=== PATIENT | female | born 1945 | race Hispanic/Latino ===

== ENCOUNTER 2021-03-21 16:07 | Inpatient (IN) | payer OTHER ==
[~2021-03-21] VITALS: Ht 157.5 cm; Wt 64.5 kg
[2021-03-21] MEDS ORDERED: ONDANSETRON 4MG INJ IVP ONE (16:30)
[2021-03-21] MEDS ORDERED: 0.9% NACL 500ML IV.SOLN 500 ML IV ONE (16:30)
[2021-03-21] MEDS ORDERED: MORPHINE 2 MG SYG IVP ONE (16:30)
[2021-03-21] MEDS ORDERED: MORPHINE 2 MG SYG ONE (16:59)
[2021-03-21] MEDS ORDERED: ONDANSETRON 4MG INJ ONE (16:59)
[2021-03-21] MEDS: FENTANYL CITRATE PF 50 MCG/1 ML 2ML VIAL ONE ×2 (17:47→19:42)
[2021-03-21] MEDS ORDERED: FENTANYL CITRATE PF 50 MCG/1 ML 2ML VIAL IVP ONE (18:00)
[2021-03-21] MEDS ORDERED: MORPHINE 2 MG SYG IV PRN (18:30)
[2021-03-21] MEDS ORDERED: ACETAMINOPHEN 325 MG TAB PO PRN ×2 (18:30)
[2021-03-21] MEDS ORDERED: ONDANSETRON 4MG INJ IV PRN (18:30)
[2021-03-21 18:54] LABS: APPEARANCE,URINE Clear (CLEAR); BILIRUBIN,URINE Negative (NEGATIVE); COLOR,URINE Yellow (YELLOW); GLUCOSE, URINE (UA) Negative (NEGATIVE); KETONES,URINE Negative (NEGATIVE); LEUKOCYTE ESTERASE ,URINE Small (NEGATIVE); NITRATE,URINE Negative (NEGATIVE); OCCULT BLOOD,URINE Negative (NEGATIVE); PROTEIN,URINE Negative (NEGATIVE); UROBILINOGEN,URINE 0.2 mg/dL (0.2-1.0)
[2021-03-21 19:21] LABS: BASOPHILS % (AUTO) 0.5 % (0.0-5.0); LYMPHOCYTES % (AUTO) 10.4 % (21.0-51.0); MEAN CORPUSCULAR HEMOGLOBIN 30.7 pg (27.0-33.0); MEAN CORPUSCULAR HGB CONC 32.3 g/dL (32.0-36.0); MEAN CORPUSCULAR VOLUME 94.9 fL (79-99); MONOCYTES % (AUTO) 7.4 % (3.0-13.0); PLATELET COUNT (AUTO) 291 K/uL (130-400); RED BLOOD CELL COUNT(AUTO) 4.11 MIL/uL (4.00-5.50); RED CELL DISTRIBUTION WIDTH 14.5 % (11.0-15.5); WHITE BLOOD COUNT (AUTO) 10.7 K/uL (4.8-10.8)
[2021-03-21 19:24] LABS: BACTERIA,URINE Moderate /HPF (None Seen); RBC,URINE 0-1 /HPF (0-1); SQUAMOUS EPITHELIAL CELL,UR Few /HPF (0-2)
[2021-03-21 19:35] LABS: CREATININE 1.4 mg/dL (0.5-1.5); POTASSIUM 3.1 mmol/L (3.5-5.1)
[2021-03-21 19:40] LABS: ALBUMIN 2.8 g/dL (3.5-5.0); BILIRUBIN,TOTAL 0.2 mg/dL (0.2-1.0); INR 0.92 (0.85-1.15); PROTHROMBIN TIME 10.1 SEC (9.6-11.6); TOTAL PROTEIN, SERUM 7.6 g/dL (6.0-8.3)
[2021-03-21 19:41] LABS: PARTIAL THROMBOPLASTIN TIME 25.7 SEC (26.3-35.5)
[2021-03-21] MEDS: 0.9%NACL 1000ML 1,000 ML IV SCH (20:10)
[2021-03-21] MEDS ORDERED: HYDROMORPHONE 1 MG INJ ONE (21:50)
[2021-03-21] MEDS ORDERED: HYDROMORPHONE 1 MG INJ IVP PRN (22:00)
[2021-03-21] MEDS ORDERED: MORPHINE 4 MG SYG IV PRN (23:30)
[2021-03-22] VITALS (25 sets, daily range): BP systolic 111–196; BP diastolic 52–99
[2021-03-22] MEDS ORDERED: MAGNESIUM 2GM PREMIX 50ML 50 ML IV PRN
[2021-03-22] MEDS ORDERED: POTASSIUM CHLORIDE 10% ELIXIR 20 MEQ/15 ML UDCUP PO PRN
[2021-03-22] MEDS ORDERED: LIDOCAINE HCL-MPF 1% 2ML VIAL IV PRN
[2021-03-22] MEDS ORDERED: POTASSIUM CHLORIDE 20MEQ/100ML 100 ML IV PRN
[2021-03-22] MEDS ORDERED: KCL 20 MEQ ERTAB PO ONE
[2021-03-22] MEDS: KCL 20 MEQ ERTAB PO PRN ×2 (00:04→00:34)
[2021-03-22 05:55] LABS: BASOPHILS % (AUTO) 0.4 % (0.0-5.0); EOSINOPHILS % (AUTO) 0.1 % (0.0-8.0); HEMATOCRIT 38.9 % (36-48); LYMPHOCYTES % (AUTO) 11.6 % (21.0-51.0); MEAN CORPUSCULAR HEMOGLOBIN 30.4 pg (27.0-33.0); MEAN CORPUSCULAR HGB CONC 31.4 g/dL (32.0-36.0); MONOCYTES % (AUTO) 8.8 % (3.0-13.0); NEUTROPHILS % (AUTO) 78.6 % (40.0-77.0); PLATELET COUNT (AUTO) 250 K/uL (130-400); RED BLOOD CELL COUNT(AUTO) 4.01 MIL/uL (4.00-5.50); RED CELL DISTRIBUTION WIDTH 14.8 % (11.0-15.5); WHITE BLOOD COUNT (AUTO) 9.4 K/uL (4.8-10.8)
[2021-03-22 06:24] LABS: CREATININE 1.3 mg/dL (0.5-1.5); MAGNESIUM 1.8 mg/dL (1.80-2.40); POTASSIUM 3.8 mmol/L (3.5-5.1)
[2021-03-22] MEDS: 0.9%NACL 1000ML 1,000 ML IV SCH ×2 (06:36→17:14)
[2021-03-22] MEDS: FAMOTIDINE 20MG VIAL IV SCH (08:18)
[2021-03-22] MEDS ORDERED: TRANEXAMIC ACID 1000MG/10ML ONE (08:57)
[2021-03-22] MEDS ORDERED: VANCOMYCIN 1G VIAL ONE (08:57)
[2021-03-22] MEDS: CEFAZOLIN SODIUM 1 GM VIAL ONE ×2 (09:26→10:00)
[2021-03-22] MEDS ORDERED: HYDROCODONE/ACETAMINOPHEN 5/325 MG TAB PO PRN (09:30)
[2021-03-22] MEDS ORDERED: PROPOFOL 10 MG/ML 20ML VIAL IV ONE (09:31)
[2021-03-22] MEDS ORDERED: SUCCINYLCHOLINE CHLORIDE 20 MG/ML 10 ML VIAL ONE (09:31)
[2021-03-22] MEDS ORDERED: ROCURONIUM 10MG/1ML SYR 10 MG/ML ML ONE (09:31)
[2021-03-22] MEDS ORDERED: LIDOCAINE PF 100MG/5ML (2%) SYRINGE 5ML ONE (09:31)
[2021-03-22] MEDS ORDERED: MIDAZOLAM HCL 1 MG/ML 2ML VIAL ONE (09:31)
[2021-03-22] MEDS ORDERED: KETAMINE 50MG/ML SYRINGE 50 MG/ML DISP.SYRIN IV ONE (09:35)
[2021-03-22] MEDS: CEFTRIAXONE 1G VIAL ONE ×2 (09:36→09:40)
[2021-03-22] MEDS ORDERED: GLYCOPYRROLATE 1 MG/5 ML SYRINGE ONE (09:47)
[2021-03-22] MEDS ORDERED: DiphenhydrAMINE HCL 50 MG/ML VIAL IVP PRN (10:00)
[2021-03-22] MEDS ORDERED: FERROUS FUMARATE 324 MG TABLET PO PRN (10:00)
[2021-03-22] MEDS ORDERED: ONDANSETRON 4MG INJ IVP PRN (10:00)
[2021-03-22] MEDS ORDERED: PHENYLEPHRINE HCL 10 MG/ML 1ML VIAL IV ONE (10:52)
[2021-03-22] MEDS ORDERED: ROPIVACAINE 0.5% 5MG/ML 30ML IJ ONE ×2 (11:08→11:10)
[2021-03-22] MEDS ORDERED: ONDANSETRON 4MG INJ ONE (11:08)
[2021-03-22] MEDS ORDERED: NEOSTIGMINE 5MG/5ML SYR IV ONE (11:08)
[2021-03-22] MEDS ORDERED: TRANEXAMIC ACID 1000MG/10ML IV ONE (12:05)
[2021-03-22] MEDS ORDERED: MEPERIDINE-PF 25 MG/ML SYG ONE ×2 (12:15→12:38)
[2021-03-22] MEDS: CEFAZOLIN SODIUM 1 GM VIAL IVP SCH (17:15)
[2021-03-22] MEDS ORDERED: PRAV10TA39 PO (18:03)
[2021-03-22] MEDS ORDERED: LEFL20TA18 PO (18:06)
[2021-03-22] MEDS ORDERED: SULF500T8 PO (18:06)
[2021-03-22] MEDS ORDERED: PRED5TAB PO (18:06)
[2021-03-22] MEDS ORDERED: LINA5TAB PO (18:06)
[2021-03-22] MEDS: LEFLUNOMIDE 20 MG PO SCH (18:30)
[2021-03-22] MEDS: SIMVASTATIN 10 MG TABLET PO SCH (20:11)
[2021-03-22] MEDS: PREDNISONE 5 MG TABLET PO SCH (20:11)
[2021-03-22] MEDS: SULFASALAZINE 500 MG TAB.DR PO SCH (20:11)
[2021-03-23] MEDS: 0.9%NACL 1000ML 1,000 ML IV SCH ×2 (00:30→10:30)
[2021-03-23] MEDS ORDERED: CEFAZOLIN SODIUM 1 GM VIAL ONE (01:04)
[2021-03-23] MEDS: CEFAZOLIN SODIUM 1 GM VIAL IVP SCH (01:07)
[2021-03-23 03:20] VITALS: BP 138/67
[2021-03-23 04:05] LABS: HEMATOCRIT 34.9 % (36-48); MEAN CORPUSCULAR HEMOGLOBIN 31.2 pg (27.0-33.0); MEAN CORPUSCULAR HGB CONC 31.8 g/dL (32.0-36.0); RED BLOOD CELL COUNT(AUTO) 3.56 MIL/uL (4.00-5.50); RED CELL DISTRIBUTION WIDTH 14.9 % (11.0-15.5); WHITE BLOOD COUNT (AUTO) 9.4 K/uL (4.8-10.8)
[2021-03-23 04:24] LABS: CREATININE 1.2 mg/dL (0.5-1.5); MAGNESIUM 2.2 mg/dL (1.80-2.40); POTASSIUM 4.6 mmol/L (3.5-5.1)
[2021-03-23] MEDS: KETOROLAC 15MG/ML VIAL (15MG/ML) IV PRN ×3 (07:13→20:59)
[2021-03-23 07:30] VITALS: BP 135/70
[2021-03-23] MEDS: SULFASALAZINE 500 MG TAB.DR PO SCH ×2 (09:00→20:53)
[2021-03-23] MEDS: LEFLUNOMIDE 20 MG PO SCH (09:00)
[2021-03-23] MEDS: CEFTRIAXONE 1G VIAL IVP SCH (10:00)
[2021-03-23] MEDS: FAMOTIDINE 20MG VIAL IV SCH (10:00)
[2021-03-23] MEDS: LINAGLIPTIN 5 MG TABLET PO SCH (10:00)
[2021-03-23] MEDS: PREDNISONE 5 MG TABLET PO SCH ×2 (10:00→20:53)
[2021-03-23] MEDS ORDERED: BIMA12.5OS OD (10:15)
[2021-03-23 11:00] VITALS: BP 106/59
[2021-03-23 16:00] VITALS: BP 142/57
[2021-03-23] MEDS ORDERED: PHARMACY COMMUNICATION MISC SCH (17:00)
[2021-03-23 20:37] VITALS: BP 141/78
[2021-03-23] MEDS: APIXABAN 2.5 MG TABLET PO SCH (20:53)
[2021-03-23] MEDS: SIMVASTATIN 10 MG TABLET PO SCH (20:53)
[2021-03-23 23:33] VITALS: BP 136/70
[2021-03-24 04:12] VITALS: BP 144/76
[2021-03-24] MEDS: 0.9%NACL 1000ML 1,000 ML IV SCH ×2 (06:30→16:30)
[2021-03-24 07:30] VITALS: BP 142/83
[2021-03-24] MEDS: KETOROLAC 15MG/ML VIAL (15MG/ML) IV PRN (07:59)
[2021-03-24] MEDS: LINAGLIPTIN 5 MG TABLET PO SCH (08:00)
[2021-03-24] MEDS: PREDNISONE 5 MG TABLET PO SCH ×2 (08:00→21:27)
[2021-03-24] MEDS: APIXABAN 2.5 MG TABLET PO SCH ×2 (08:01→21:27)
[2021-03-24] MEDS: LEFLUNOMIDE 20 MG PO SCH (09:00)
[2021-03-24] MEDS: SULFASALAZINE 500 MG TAB.DR PO SCH ×2 (09:00→21:26)
[2021-03-24] MEDS: CEFTRIAXONE 1G VIAL IVP SCH (09:12)
[2021-03-24] MEDS: FAMOTIDINE 20MG TAB PO SCH (10:12)
[2021-03-24 11:00] VITALS: BP 140/85
[2021-03-24 16:00] VITALS: BP 138/68
[2021-03-24 20:41] VITALS: BP 128/65
[2021-03-24] MEDS: SIMVASTATIN 10 MG TABLET PO SCH (21:27)
[2021-03-24 23:56] VITALS: BP 143/69
[2021-03-25] MEDS: 0.9%NACL 1000ML 1,000 ML IV SCH ×2 (02:30→19:32)
[2021-03-25 04:00] VITALS: BP 151/76
[2021-03-25 04:27] LABS: HEMATOCRIT 30.6 % (36-48); MEAN CORPUSCULAR HEMOGLOBIN 30.6 pg (27.0-33.0); MEAN CORPUSCULAR HGB CONC 32.7 g/dL (32.0-36.0); MEAN CORPUSCULAR VOLUME 93.6 fL (79-99); RED BLOOD CELL COUNT(AUTO) 3.27 MIL/uL (4.00-5.50); RED CELL DISTRIBUTION WIDTH 14.7 % (11.0-15.5)
[2021-03-25 04:32] LABS: CREATININE 1.2 mg/dL (0.5-1.5)
[2021-03-25 07:30] VITALS: BP 125/61
[2021-03-25] MEDS: APIXABAN 2.5 MG TABLET PO SCH ×2 (08:33→20:37)
[2021-03-25] MEDS: PREDNISONE 5 MG TABLET PO SCH ×2 (08:33→20:37)
[2021-03-25] MEDS: LINAGLIPTIN 5 MG TABLET PO SCH (08:33)
[2021-03-25] MEDS: FAMOTIDINE 20MG TAB PO SCH (08:33)
[2021-03-25] MEDS: SULFASALAZINE 500 MG TAB.DR PO SCH ×2 (08:36→20:38)
[2021-03-25] MEDS: LEFLUNOMIDE 20 MG PO SCH (08:36)
[2021-03-25] MEDS: KETOROLAC 15MG/ML VIAL (15MG/ML) IV PRN (08:41)
[2021-03-25] MEDS: CEFTRIAXONE 1G VIAL IVP SCH (10:56)
[2021-03-25 11:00] VITALS: BP 105/55
[2021-03-25 16:00] VITALS: BP 144/75
[2021-03-25] MEDS: SIMVASTATIN 10 MG TABLET PO SCH (20:37)
[2021-03-25] MEDS: TRAMADOL HCL 50 MG TABLET PO SCH (20:38)
[2021-03-25 23:14] VITALS: BP 123/61
[2021-03-26] MEDS: TRAMADOL HCL 50 MG TABLET PO SCH ×4 (03:18→19:57)
[2021-03-26 03:32] VITALS: BP 144/73
[2021-03-26 03:54] LABS: HEMATOCRIT 32.4 % (36-48); MEAN CORPUSCULAR HEMOGLOBIN 30.6 pg (27.0-33.0); MEAN CORPUSCULAR HGB CONC 31.5 g/dL (32.0-36.0); MEAN CORPUSCULAR VOLUME 97.3 fL (79-99); RED BLOOD CELL COUNT(AUTO) 3.33 MIL/uL (4.00-5.50); RED CELL DISTRIBUTION WIDTH 14.7 % (11.0-15.5); WHITE BLOOD COUNT (AUTO) 7.3 K/uL (4.8-10.8)
[2021-03-26 04:08] LABS: CREATININE 1.5 mg/dL (0.5-1.5); POTASSIUM 4.4 mmol/L (3.5-5.1)
[2021-03-26 07:30] VITALS: BP 128/68
[2021-03-26] MEDS: 0.9%NACL 1000ML 1,000 ML IV SCH ×2 (08:30→19:39)
[2021-03-26] MEDS: FAMOTIDINE 20MG TAB PO SCH (08:53)
[2021-03-26] MEDS: CEFTRIAXONE 1G VIAL IVP SCH (08:54)
[2021-03-26] MEDS: APIXABAN 2.5 MG TABLET PO SCH ×2 (08:54→19:56)
[2021-03-26] MEDS: PREDNISONE 5 MG TABLET PO SCH ×2 (08:54→19:56)
[2021-03-26] MEDS: LINAGLIPTIN 5 MG TABLET PO SCH (08:57)
[2021-03-26] MEDS: LEFLUNOMIDE 20 MG PO SCH (09:00)
[2021-03-26] MEDS: SULFASALAZINE 500 MG TAB.DR PO SCH ×2 (09:00→19:56)
[2021-03-26 11:00] VITALS: BP 137/68
[2021-03-26 16:00] VITALS: BP 137/71
[2021-03-26] MEDS: SIMVASTATIN 10 MG TABLET PO SCH (19:56)
[2021-03-26 20:28] VITALS: BP 146/80
[2021-03-26 23:23] VITALS: BP 151/77
[2021-03-27] MEDS: TRAMADOL HCL 50 MG TABLET PO SCH ×3 (03:42→11:50)
[2021-03-27 03:43] VITALS: BP 149/85
[2021-03-27 03:49] LABS: HEMATOCRIT 31.5 % (36-48); MEAN CORPUSCULAR HEMOGLOBIN 30.9 pg (27.0-33.0); MEAN CORPUSCULAR HGB CONC 32.4 g/dL (32.0-36.0); MEAN CORPUSCULAR VOLUME 95.5 fL (79-99); RED BLOOD CELL COUNT(AUTO) 3.3 MIL/uL (4.00-5.50); RED CELL DISTRIBUTION WIDTH 14.7 % (11.0-15.5); WHITE BLOOD COUNT (AUTO) 7.1 K/uL (4.8-10.8)
[2021-03-27 03:57] LABS: CREATININE 1.3 mg/dL (0.5-1.5); POTASSIUM 4.1 mmol/L (3.5-5.1)
[2021-03-27 07:42] VITALS: BP 132/48
[2021-03-27] MEDS: LEFLUNOMIDE 20 MG PO SCH (09:00)
[2021-03-27] MEDS: APIXABAN 2.5 MG TABLET PO SCH (09:46)
[2021-03-27] MEDS: FAMOTIDINE 20MG TAB PO SCH (09:46)
[2021-03-27] MEDS: CEFTRIAXONE 1G VIAL IVP SCH (09:46)
[2021-03-27] MEDS: LINAGLIPTIN 5 MG TABLET PO SCH (09:47)
[2021-03-27] MEDS: PREDNISONE 5 MG TABLET PO SCH (09:47)
[2021-03-27] MEDS: SULFASALAZINE 500 MG TAB.DR PO SCH (09:47)
[2021-03-27] MEDS: 0.9%NACL 1000ML 1,000 ML IV SCH (14:30)
== END 2021-03-27 18:44 | DRG 522 ==
LOC: EDH 16:07 → OBSVTOIN 16:08 → EDHIP 16:08 → 4AH 23:06
PROVIDERS: ADMIT Internal Medicine Critical Care Medicine; ATTEND Internal Medicine Critical Care Medicine
PROC: 0SRR0JZ Replacement of Right Hip Joint, Femoral Surface with Synthetic Substitute, Open Approach (ICD-10-PCS; principal; 2021-03-22 10:19)
PROC: 3E0T3BZ Introduction of Anesthetic Agent into Peripheral Nerves and Plexi, Percutaneous Approach (ICD-10-PCS; 2021-03-22 10:19)
PROC: 3E0T33Z Introduction of Anti-inflammatory into Peripheral Nerves and Plexi, Percutaneous Approach (ICD-10-PCS; 2021-03-22 10:19)
DX: S72.001A Fracture of unspecified part of neck of right femur, initial encounter for closed fracture (principal); N39.0 Urinary tract infection, site not specified; E87.6 Hypokalemia; Z20.822 Contact with and (suspected) exposure to COVID-19; M19.90 Unspecified osteoarthritis, unspecified site; H40.9 Unspecified glaucoma; N20.0 Calculus of kidney; E11.9 Type 2 diabetes mellitus without complications; E78.5 Hyperlipidemia, unspecified; W01.0XXA Fall on same level from slipping, tripping and stumbling without subsequent striking against object, initial encounter; Y93.89 Activity, other specified; Y92.89 Other specified places as the place of occurrence of the external cause; Y99.8 Other external cause status; Z88.5 Allergy status to narcotic agent; Z87.442 Personal history of urinary calculi; Z98.42 Cataract extraction status, left eye; Z98.41 Cataract extraction status, right eye; Z90.49 Acquired absence of other specified parts of digestive tract; Z88.8 Allergy status to other drugs, medicaments and biological substances; Z83.3 Family history of diabetes mellitus; Z82.49 Family history of ischemic heart disease and other diseases of the circulatory system
CPT/HCPCS: 36415; 71045; 73502; 73503; 80048; 80053; 81001; 82948; 83735; 84484; 85025; 85027; 85610; 85730; 86850; 86900; 86901; 87077; 87088; 87186; 87635; 93005; 97039; C1776; G0378; J0330; J0690; J0696; J1170; J1885; J2001; J2175; J2250; J2270; J2370; J2405; J2704; J2710; J2795; J3010; J3370; J3475; J3490; J7030; J7512

== ENCOUNTER 2022-05-31 13:40 | Inpatient (IN) | payer OTHER ==
[~2022-05-31] VITALS: Ht 157.5 cm; Wt 58.0 kg
[~2022-05-31 13:40] MED LIST: BIMA12.5OS OD; LEFL20TA18 PO; LINA5TAB PO; PRAV10TA39 PO; PRED5TAB PO; SULF500T8 PO
[2022-05-31 14:35] LABS: BASOPHILS % (AUTO) 0.3 % (0.0-5.0); EOSINOPHILS % (AUTO) 0.1 % (0.0-8.0); HEMATOCRIT 38.4 % (36-48); MEAN CORPUSCULAR HEMOGLOBIN 29.5 pg (27.0-33.0); MEAN CORPUSCULAR HGB CONC 33.1 g/dL (32.0-36.0); MEAN CORPUSCULAR VOLUME 89.1 fL (79-99); NEUTROPHILS % (AUTO) 83.7 % (40.0-77.0); PLATELET COUNT (AUTO) 313 K/uL (130-400); RED BLOOD CELL COUNT(AUTO) 4.31 MIL/uL (4.00-5.50); RED CELL DISTRIBUTION WIDTH 14.8 % (11.0-15.5); WHITE BLOOD COUNT (AUTO) 19.8 K/uL (4.8-10.8)
[2022-05-31] MEDS ORDERED: ZOSYN 3.375GM +NS 50ML IV STA (14:43)
[2022-05-31 14:45] LABS: CREATININE 1.5 mg/dL (0.5-1.5); POTASSIUM 3.9 mmol/L (3.5-5.1)
[2022-05-31 14:47] LABS: ALBUMIN 2.1 g/dL (3.5-5.0); TOTAL PROTEIN, SERUM 8.8 g/dL (6.0-8.3)
[2022-05-31 15:03] LABS: APPEARANCE,URINE TURBID (CLEAR); BILIRUBIN,URINE NEGATIVE (NEGATIVE); COLOR,URINE LIGHT-ORANGE (YELLOW); GLUCOSE, URINE (UA) NEGATIVE (NEGATIVE); KETONES,URINE NEGATIVE (NEGATIVE); LEUKOCYTE ESTERASE ,URINE 500 Leu/uL (NEGATIVE); NITRATE,URINE NEGATIVE (NEGATIVE); OCCULT BLOOD,URINE MODERATE (NEGATIVE); PH,URINE 5.5 (5.0-8.0); PROTEIN,URINE 100 mg/dL (NEGATIVE)
[2022-05-31 15:15] LABS: BACTERIA,URINE MOD /HPF (None Seen); MUCUS,URINE RARE LPF (None Seen); SQUAMOUS EPITHELIAL CELL,UR FEW /HPF (0-2); WBC,URINE >100 /HPF (0-1); YEAST,URINE BUDDING RARE /HPF (None Seen)
[2022-05-31 15:20] LABS: APPEARANCE,URINE TURBID (CLEAR)
[2022-05-31 15:21] LABS: COLOR,URINE BROWN (YELLOW)
[2022-05-31 15:22] LABS: LEUKOCYTE ESTERASE ,URINE MODERATE Leu/uL (NEGATIVE); NITRATE,URINE NEGATIVE (NEGATIVE); UROBILINOGEN,URINE 0.2 mg/dL (0.2-1.0)
[2022-05-31 15:24] LABS: PROTEIN,URINE >=1000 mg/dL (NEGATIVE)
[2022-05-31 15:25] LABS: OCCULT BLOOD,URINE LARGE (NEGATIVE)
[2022-05-31 15:26] LABS: BILIRUBIN,URINE NEGATIVE (NEGATIVE); GLUCOSE, URINE (UA) 100 mg/dL (NEGATIVE); KETONES,URINE >=80 mg/dL (NEGATIVE)
[2022-05-31 15:46] LABS: WBC,URINE TNTC /HPF (0-1)
[2022-05-31 15:47] LABS: BACTERIA,URINE Moderate /HPF (None Seen); SQUAMOUS EPITHELIAL CELL,UR None Seen /HPF (0-2)
[2022-05-31] MEDS ORDERED: IOHEXOL 350 MG/ML 100ML INFUS..BTL IV ONE (16:23)
[2022-05-31] MEDS ORDERED: ACETAMINOPHEN 325 MG TAB PO PRN (19:00)
[2022-05-31] MEDS ORDERED: VANCOMYCIN PROTOCOL PER PHARMACY IV PRN (19:00)
[2022-05-31] MEDS ORDERED: VANCOMYCIN 1G/250ML KIT 250 ML IV SCH (19:30)
[2022-05-31 19:39] LABS: CREATININE,URINE RANDOM 196 mg/dL (30-135); SODIUM,URINE RANDOM 16 mmol/l (40-220)
[2022-05-31 19:56] LABS: INR 1.07 (0.85-1.15); PROTHROMBIN TIME 11.6 SEC (9.6-11.6)
[2022-05-31 19:58] LABS: PARTIAL THROMBOPLASTIN TIME 26.5 SEC (26.3-35.5)
[2022-05-31 20:12] LABS: CRP QUANTITATIVE 319.9 mg/L (0.00-9.0)
[2022-05-31 20:20] LABS: HEMOGLOBIN A1C 7.9 % (4.0-6.0)
[2022-05-31] MEDS ORDERED: DEXTROSE 5%-WATER 250 ML IV ONE (20:35)
[2022-05-31] MEDS ORDERED: ONDA4TAB10 PO (21:12)
[2022-05-31] MEDS ORDERED: ROSU5TAB12 PO (21:17)
[2022-05-31] MEDS: 0.9%NACL 1000ML 1,000 ML IV SCH (22:30)
[2022-05-31] MEDS: FAMOTIDINE 20MG VIAL IV SCH (22:30)
[2022-05-31] MEDS: MEROPENEM 500 MG VIAL IV SCH (22:34)
[2022-06-01] VITALS (13 sets, daily range): BP systolic 90–121; BP diastolic 48–64
[2022-06-01] MEDS: HYDROMORPHONE 0.5 MG SYG (0.5MG/0.5ML) IVP PRN ×2 (01:07→13:23)
[2022-06-01 06:59] LABS: BASOPHILS % (AUTO) 0.3 % (0.0-5.0); EOSINOPHILS % (AUTO) 0.7 % (0.0-8.0); HEMATOCRIT 32.4 % (36-48); LYMPHOCYTES % (AUTO) 9.4 % (21.0-51.0); MEAN CORPUSCULAR HEMOGLOBIN 28.5 pg (27.0-33.0); MEAN CORPUSCULAR HGB CONC 32.7 g/dL (32.0-36.0); MEAN CORPUSCULAR VOLUME 87.1 fL (79-99); MONOCYTES % (AUTO) 7.4 % (3.0-13.0); NEUTROPHILS % (AUTO) 81.4 % (40.0-77.0); PLATELET COUNT (AUTO) 264 K/uL (130-400); RED BLOOD CELL COUNT(AUTO) 3.72 MIL/uL (4.00-5.50); RED CELL DISTRIBUTION WIDTH 14.9 % (11.0-15.5); WHITE BLOOD COUNT (AUTO) 17.3 K/uL (4.8-10.8)
[2022-06-01 07:17] LABS: ALBUMIN 1.6 g/dL (3.5-5.0); CREATININE 1.3 mg/dL (0.5-1.5); MAGNESIUM 1.7 mg/dL (1.80-2.40); POTASSIUM 3.2 mmol/L (3.5-5.1); TOTAL PROTEIN, SERUM 7.2 g/dL (6.0-8.3)
[2022-06-01] MEDS: 0.9%NACL 1000ML 1,000 ML IV SCH ×2 (07:38→13:12)
[2022-06-01 08:18] LABS: CRP QUANTITATIVE 238.2 mg/L (0.00-9.0)
[2022-06-01 08:24] LABS: ERYTHROCYTE SEDIMENTATION RATE 150 MM/HR (0-30)
[2022-06-01] MEDS: MEROPENEM 500 MG VIAL IV SCH ×2 (08:39→21:07)
[2022-06-01] MEDS ORDERED: FENTANYL CITRATE PF 50 MCG/1 ML 2ML VIAL ONE (14:04)
[2022-06-01] MEDS ORDERED: 0.9%NACL 100ML 100 ML ONE (17:54)
[2022-06-01] MEDS ORDERED: VANCOMYCIN 500MG+NS 100ML 100 ML IV SCH (18:00)
[2022-06-01] MEDS: FAMOTIDINE 20MG VIAL IV SCH (21:07)
[2022-06-02] VITALS (7 sets, daily range): BP systolic 105–131; BP diastolic 44–83
[2022-06-02] MEDS: HYDROMORPHONE 0.5 MG SYG (0.5MG/0.5ML) IM PRN ×4 (00:05→20:20)
[2022-06-02 07:53] LABS: BASOPHILS % (AUTO) 0.3 % (0.0-5.0); EOSINOPHILS % (AUTO) 0.1 % (0.0-8.0); HEMATOCRIT 31.6 % (36-48); LYMPHOCYTES % (AUTO) 7.9 % (21.0-51.0); MEAN CORPUSCULAR HEMOGLOBIN 29.4 pg (27.0-33.0); MEAN CORPUSCULAR HGB CONC 33.5 g/dL (32.0-36.0); MEAN CORPUSCULAR VOLUME 87.5 fL (79-99); MONOCYTES % (AUTO) 6.4 % (3.0-13.0); NEUTROPHILS % (AUTO) 84.7 % (40.0-77.0); PLATELET COUNT (AUTO) 226 K/uL (130-400); RED BLOOD CELL COUNT(AUTO) 3.61 MIL/uL (4.00-5.50); RED CELL DISTRIBUTION WIDTH 14.9 % (11.0-15.5); WHITE BLOOD COUNT (AUTO) 14.2 K/uL (4.8-10.8)
[2022-06-02] MEDS: MEROPENEM 500 MG VIAL IV SCH (08:15)
[2022-06-02 08:27] LABS: CREATININE 1.1 mg/dL (0.5-1.5); MAGNESIUM 1.8 mg/dL (1.80-2.40); POTASSIUM 3.3 mmol/L (3.5-5.1)
[2022-06-02] MEDS: 0.9%NACL 1000ML 1,000 ML IV SCH ×3 (11:51→20:36)
[2022-06-02] MEDS: MEROPENEM 1 GM VIAL IVP SCH ×2 (13:39→20:36)
[2022-06-02] MEDS ORDERED: POTASSIUM CHLORIDE 10% ELIXIR 20 MEQ/15 ML UDCUP PO PRN (16:00)
[2022-06-02] MEDS ORDERED: LIDOCAINE HCL-MPF 1% 2ML VIAL IV PRN (16:00)
[2022-06-02] MEDS ORDERED: POTASSIUM CHLORIDE 20MEQ/100ML 100 ML IV PRN (16:00)
[2022-06-02] MEDS: KCL 20 MEQ ERTAB PO PRN ×3 (16:02→20:20)
[2022-06-02] MEDS: MAGNESIUM 2GM PREMIX 50ML 50 ML IV PRN (16:03)
[2022-06-02] MEDS ORDERED: 0.9%NACL 100ML 100 ML ONE (19:41)
[2022-06-02] MEDS: FAMOTIDINE 20MG VIAL IV SCH (20:20)
[2022-06-03] VITALS (14 sets, daily range): BP systolic 95–131; BP diastolic 42–62
[2022-06-03 03:38] LABS: RETICULOCYTE % (AUTO) 1.66 % (0.42-2.23)
[2022-06-03 03:49] LABS: % IRON SATURATION 18.9 % (22-44)
[2022-06-03 04:15] LABS: CREATININE 1.2 mg/dL (0.5-1.5); MAGNESIUM 1.6 mg/dL (1.80-2.40); PHOSPHORUS 2.5 mg/dL (2.5-4.9)
[2022-06-03] MEDS ORDERED: 0.9%NACL 100ML 100 ML ONE (04:59)
[2022-06-03] MEDS: MEROPENEM 1 GM VIAL IVP SCH ×3 (05:03→20:05)
[2022-06-03] MEDS: HYDROMORPHONE 0.5 MG SYG (0.5MG/0.5ML) IM PRN ×2 (05:40→20:05)
[2022-06-03] MEDS: MAGNESIUM 2GM PREMIX 50ML 50 ML IV PRN (06:12)
[2022-06-03] MEDS: 0.9%NACL 1000ML 1,000 ML IV SCH (06:13)
[2022-06-03] MEDS ORDERED: IOHEXOL-350 50ML VIAL IV ONE (08:23)
[2022-06-03] MEDS ORDERED: FENTANYL CITRATE PF 50 MCG/1 ML 2ML VIAL ONE (08:24)
[2022-06-03] MEDS ORDERED: LIDOCAINE HCL 400MG/20ML VIAL ONE (08:24)
[2022-06-03] MEDS ORDERED: MIDAZOLAM HCL 1 MG/ML 2ML VIAL ONE (08:24)
[2022-06-03] MEDS ORDERED: IOHEXOL 350 MG/ML 100ML INFUS..BTL IV ONE (08:45)
[2022-06-03 14:43] LABS: INR 1.06 (0.85-1.15); PROTHROMBIN TIME 11.5 SEC (9.6-11.6)
[2022-06-03 14:44] LABS: PARTIAL THROMBOPLASTIN TIME 30.2 SEC (26.3-35.5)
[2022-06-03] MEDS: FAMOTIDINE 20MG VIAL IV SCH (20:05)
[2022-06-04] VITALS (10 sets, daily range): BP systolic 82–111; BP diastolic 49–63
[2022-06-04] MEDS: 0.9%NACL 1000ML 1,000 ML IV SCH ×3 (03:00→23:00)
[2022-06-04 03:46] LABS: BASOPHILS % (AUTO) 0.6 % (0.0-5.0); EOSINOPHILS % (AUTO) 1.5 % (0.0-8.0); HEMATOCRIT 31.7 % (36-48); MEAN CORPUSCULAR HEMOGLOBIN 28.8 pg (27.0-33.0); MEAN CORPUSCULAR HGB CONC 33.1 g/dL (32.0-36.0); MEAN CORPUSCULAR VOLUME 87.1 fL (79-99); MONOCYTES % (AUTO) 6.4 % (3.0-13.0); NEUTROPHILS % (AUTO) 81.8 % (40.0-77.0); PLATELET COUNT (AUTO) 248 K/uL (130-400); RED BLOOD CELL COUNT(AUTO) 3.64 MIL/uL (4.00-5.50); RED CELL DISTRIBUTION WIDTH 14.6 % (11.0-15.5)
[2022-06-04 03:54] LABS: CREATININE 1.1 mg/dL (0.5-1.5); POTASSIUM 3.8 mmol/L (3.5-5.1)
[2022-06-04] MEDS: MEROPENEM 1 GM VIAL IVP SCH ×3 (05:07→20:43)
[2022-06-04] MEDS: HYDROMORPHONE 0.5 MG SYG (0.5MG/0.5ML) IM PRN ×3 (05:22→23:20)
[2022-06-04] MEDS ORDERED: 0.9%NACL 100ML 100 ML ONE (12:48)
[2022-06-04] MEDS ORDERED: IODIXANOL 320 MG/ML 100 ML VIAL ONE (13:21)
[2022-06-04] MEDS ORDERED: LIDOCAINE HCL 1% 20 ML VIAL ONE (13:21)
[2022-06-04] MEDS ORDERED: FENTANYL CITRATE PF 50 MCG/1 ML 2ML VIAL ONE (13:27)
[2022-06-04] MEDS: BISACODYL 5 MG TABLET.DR PO SCH (14:41)
[2022-06-04] MEDS: ATORVASTATIN 10 MG TABLET PO SCH (20:43)
[2022-06-04] MEDS: FAMOTIDINE 20MG VIAL IV SCH (20:43)
[2022-06-05] VITALS (7 sets, daily range): BP systolic 93–156; BP diastolic 50–83
[2022-06-05] MEDS: MEROPENEM 1 GM VIAL IVP SCH ×3 (05:32→20:06)
[2022-06-05 05:47] LABS: BASOPHILS % (AUTO) 0.5 % (0.0-5.0); EOSINOPHILS % (AUTO) 1.6 % (0.0-8.0); HEMATOCRIT 31.4 % (36-48); LYMPHOCYTES % (AUTO) 12.6 % (21.0-51.0); MEAN CORPUSCULAR HEMOGLOBIN 28.6 pg (27.0-33.0); MEAN CORPUSCULAR HGB CONC 32.5 g/dL (32.0-36.0); MONOCYTES % (AUTO) 7.5 % (3.0-13.0); NEUTROPHILS % (AUTO) 77.3 % (40.0-77.0); PLATELET COUNT (AUTO) 268 K/uL (130-400); RED BLOOD CELL COUNT(AUTO) 3.57 MIL/uL (4.00-5.50); RED CELL DISTRIBUTION WIDTH 14.6 % (11.0-15.5); WHITE BLOOD COUNT (AUTO) 9.4 K/uL (4.8-10.8)
[2022-06-05 05:52] LABS: POTASSIUM 3.9 mmol/L (3.5-5.1)
[2022-06-05] MEDS: BISACODYL 5 MG TABLET.DR PO SCH (08:16)
[2022-06-05] MEDS ORDERED: 0.9%NACL 100ML 100 ML ONE (12:18)
[2022-06-05] MEDS: HYDROMORPHONE 0.5 MG SYG (0.5MG/0.5ML) IVP PRN (12:24)
[2022-06-05] MEDS: FAMOTIDINE 20MG VIAL IV SCH (20:06)
[2022-06-05] MEDS: ATORVASTATIN 10 MG TABLET PO SCH (20:07)
[2022-06-06] VITALS (7 sets, daily range): BP systolic 82–98; BP diastolic 51–61
[2022-06-06] MEDS: MEROPENEM 1 GM VIAL IVP SCH ×3 (05:29→21:13)
[2022-06-06 05:43] LABS: EOSINOPHILS % (AUTO) 2.6 % (0.0-8.0); MEAN CORPUSCULAR HEMOGLOBIN 28.5 pg (27.0-33.0); MEAN CORPUSCULAR HGB CONC 32.7 g/dL (32.0-36.0); MEAN CORPUSCULAR VOLUME 87.1 fL (79-99); MONOCYTES % (AUTO) 7.9 % (3.0-13.0); NEUTROPHILS % (AUTO) 66.9 % (40.0-77.0); PLATELET COUNT (AUTO) 310 K/uL (130-400); RED BLOOD CELL COUNT(AUTO) 3.79 MIL/uL (4.00-5.50); RED CELL DISTRIBUTION WIDTH 14.6 % (11.0-15.5)
[2022-06-06 06:43] LABS: CREATININE 1.1 mg/dL (0.5-1.5)
[2022-06-06] MEDS: BISACODYL 5 MG TABLET.DR PO SCH (09:00)
[2022-06-06] MEDS: HYDROMORPHONE 0.5 MG SYG (0.5MG/0.5ML) IVP PRN (11:45)
[2022-06-06] MEDS ORDERED: ONDANSETRON 4MG INJ IVP PRN (12:10)
[2022-06-06] MEDS ORDERED: 0.9%NACL 100ML 100 ML ONE ×2 (13:01→21:07)
[2022-06-06] MEDS: ACETAMINOPHEN 500 MG TABLET PO PRN (19:46)
[2022-06-06] MEDS: ATORVASTATIN 10 MG TABLET PO SCH (21:13)
[2022-06-06] MEDS: FAMOTIDINE 20MG VIAL IV SCH (21:13)
[2022-06-07 03:33] VITALS: BP 113/58
[2022-06-07] MEDS ORDERED: 0.9%NACL 100ML 100 ML ONE ×3 (04:38→20:27)
[2022-06-07] MEDS: MEROPENEM 1 GM VIAL IVP SCH ×3 (04:58→20:31)
[2022-06-07] MEDS: ACETAMINOPHEN 500 MG TABLET PO PRN ×2 (05:04→10:44)
[2022-06-07 06:57] LABS: EOSINOPHILS % (AUTO) 2.8 % (0.0-8.0); LYMPHOCYTES % (AUTO) 19.4 % (21.0-51.0); MEAN CORPUSCULAR HEMOGLOBIN 28.7 pg (27.0-33.0); MEAN CORPUSCULAR HGB CONC 32.3 g/dL (32.0-36.0); MEAN CORPUSCULAR VOLUME 88.8 fL (79-99); MONOCYTES % (AUTO) 6.1 % (3.0-13.0); NEUTROPHILS % (AUTO) 70.1 % (40.0-77.0); PLATELET COUNT (AUTO) 360 K/uL (130-400); RED BLOOD CELL COUNT(AUTO) 3.94 MIL/uL (4.00-5.50); RED CELL DISTRIBUTION WIDTH 14.5 % (11.0-15.5); WHITE BLOOD COUNT (AUTO) 8.3 K/uL (4.8-10.8)
[2022-06-07 07:10] LABS: CREATININE 1.2 mg/dL (0.5-1.5); POTASSIUM 3.7 mmol/L (3.5-5.1)
[2022-06-07 08:00] VITALS: BP 89/57
[2022-06-07] MEDS: BISACODYL 5 MG TABLET.DR PO SCH (09:34)
[2022-06-07 11:56] VITALS: BP 98/47
[2022-06-07 16:00] VITALS: BP 83/48
[2022-06-07 20:06] VITALS: BP 92/52
[2022-06-07] MEDS: FAMOTIDINE 20MG VIAL IV SCH (20:32)
[2022-06-07] MEDS: GABAPENTIN 100 MG CAPSULE PO SCH (20:32)
[2022-06-07] MEDS: ATORVASTATIN 10 MG TABLET PO SCH (20:37)
[2022-06-07 23:34] VITALS: BP 92/45
[2022-06-08] VITALS (7 sets, daily range): BP systolic 83–106; BP diastolic 45–54
[2022-06-08] MEDS: HYDROMORPHONE 0.5 MG SYG (0.5MG/0.5ML) IVP PRN ×2 (02:55→09:49)
[2022-06-08] MEDS: MEROPENEM 1 GM VIAL IVP SCH ×3 (05:01→20:31)
[2022-06-08 07:47] LABS: BASOPHILS % (AUTO) 0.8 % (0.0-5.0); EOSINOPHILS % (AUTO) 4.2 % (0.0-8.0); HEMATOCRIT 32.7 % (36-48); LYMPHOCYTES % (AUTO) 26.7 % (21.0-51.0); MEAN CORPUSCULAR HEMOGLOBIN 28.4 pg (27.0-33.0); MEAN CORPUSCULAR HGB CONC 31.5 g/dL (32.0-36.0); MEAN CORPUSCULAR VOLUME 90.1 fL (79-99); MONOCYTES % (AUTO) 6.6 % (3.0-13.0); NEUTROPHILS % (AUTO) 61.1 % (40.0-77.0); PLATELET COUNT (AUTO) 319 K/uL (130-400); RED BLOOD CELL COUNT(AUTO) 3.63 MIL/uL (4.00-5.50); RED CELL DISTRIBUTION WIDTH 14.6 % (11.0-15.5); WHITE BLOOD COUNT (AUTO) 8.3 K/uL (4.8-10.8)
[2022-06-08 08:07] LABS: ALBUMIN 1.6 g/dL (3.5-5.0); CREATININE 1.4 mg/dL (0.5-1.5); POTASSIUM 3.9 mmol/L (3.5-5.1); TOTAL PROTEIN, SERUM 7.1 g/dL (6.0-8.3)
[2022-06-08 08:25] LABS: INR 1.02 (0.85-1.15); PROTHROMBIN TIME 11.1 SEC (9.6-11.6)
[2022-06-08 08:26] LABS: PARTIAL THROMBOPLASTIN TIME 29.4 SEC (26.3-35.5)
[2022-06-08] MEDS: LIDOCAINE 5% TOPICAL PATCH TP SCH (09:47)
[2022-06-08] MEDS: GABAPENTIN 100 MG CAPSULE PO SCH ×3 (09:47→20:32)
[2022-06-08] MEDS: BISACODYL 5 MG TABLET.DR PO SCH (09:49)
[2022-06-08] MEDS: ATORVASTATIN 10 MG TABLET PO SCH (20:32)
[2022-06-08] MEDS: FAMOTIDINE 20MG VIAL IV SCH (20:32)
[2022-06-09] VITALS (25 sets, daily range): BP systolic 86–132; BP diastolic 39–67
[2022-06-09] MEDS: MEROPENEM 1 GM VIAL IVP SCH ×3 (05:42→20:43)
[2022-06-09] MEDS ORDERED: LIDOCAINE HCL 1% 20 ML VIAL ONE ×2 (07:15→11:17)
[2022-06-09] MEDS ORDERED: IODIXANOL 320 MG/ML 100 ML VIAL ONE ×2 (07:15→11:17)
[2022-06-09 07:18] LABS: HEMATOCRIT 30.8 % (36-48); MEAN CORPUSCULAR HEMOGLOBIN 28.3 pg (27.0-33.0); MEAN CORPUSCULAR HGB CONC 32.5 g/dL (32.0-36.0); MEAN CORPUSCULAR VOLUME 87.3 fL (79-99); RED BLOOD CELL COUNT(AUTO) 3.53 MIL/uL (4.00-5.50); RED CELL DISTRIBUTION WIDTH 14.9 % (11.0-15.5); WHITE BLOOD COUNT (AUTO) 8.2 K/uL (4.8-10.8)
[2022-06-09 07:34] LABS: ALBUMIN 1.5 g/dL (3.5-5.0); CREATININE 1.3 mg/dL (0.5-1.5); POTASSIUM 3.3 mmol/L (3.5-5.1); TOTAL PROTEIN, SERUM 6.5 g/dL (6.0-8.3)
[2022-06-09] MEDS ORDERED: FENTANYL CITRATE PF 50 MCG/1 ML 2ML VIAL ONE ×2 (07:34→11:17)
[2022-06-09] MEDS: LIDOCAINE 5% TOPICAL PATCH TP SCH (08:39)
[2022-06-09] MEDS: GABAPENTIN 100 MG CAPSULE PO SCH ×3 (08:39→20:43)
[2022-06-09] MEDS: BISACODYL 5 MG TABLET.DR PO SCH (08:39)
[2022-06-09] MEDS ORDERED: ASPIRIN 325MG TAB ONE (11:02)
[2022-06-09] MEDS ORDERED: CLOPIDOGREL 75MG TAB ONE (11:05)
[2022-06-09] MEDS ORDERED: HEPARIN 10,000 UNIT/10ML (1,000 UNIT/ML) VIAL ONE (11:17)
[2022-06-09] MEDS ORDERED: MIDAZOLAM HCL 1 MG/ML 2ML VIAL ONE (11:17)
[2022-06-09] MEDS ORDERED: ATROPINE 1MG SYG IVP ONE (11:17)
[2022-06-09] MEDS ORDERED: VERAPAMIL HCL 2.5 MG/ML VIAL ONE (11:17)
[2022-06-09] MEDS ORDERED: DOPAMINE HCL 400 MG/D5%-WATER 0 ML IV ONE (11:18)
[2022-06-09] MEDS ORDERED: NITROGLYCERIN 50MG/D5W 250ML 1 BOT ONE (11:38)
[2022-06-09] MEDS ORDERED: EPTIFIBATIDE 2 MG/ML 10 ML VIAL IVP ONE (11:46)
[2022-06-09] MEDS ORDERED: EPTIFIBATIDE 75MG/100ML BOTTLE 100 ML IV ONE (11:46)
[2022-06-09] MEDS ORDERED: NICARDIPINE 25MG INJ IV ONE (12:01)
[2022-06-09] MEDS ORDERED: GLUCAGON 1MG KIT 1 MG ML IM PRN (12:30)
[2022-06-09] MEDS ORDERED: DEXTROSE 50%-WATER 50 ML DISP.SYRIN IV PRN (12:30)
[2022-06-09] MEDS: INSULIN HUMULIN R 100 UNIT/ML 3ML SQ SCH ×2 (17:00→19:53)
[2022-06-09] MEDS ORDERED: 0.9%NACL 100ML 100 ML ONE (20:35)
[2022-06-09] MEDS: KCL 20 MEQ ERTAB PO PRN ×2 (20:43→22:39)
[2022-06-09] MEDS: FAMOTIDINE 20MG VIAL IV SCH (20:43)
[2022-06-09] MEDS: ATORVASTATIN 10 MG TABLET PO SCH (20:43)
[2022-06-10] VITALS (23 sets, daily range): BP systolic 83–126; BP diastolic 45–70
[2022-06-10] MEDS: KCL 20 MEQ ERTAB PO PRN (00:44)
[2022-06-10] MEDS ORDERED: 0.9%NACL 100ML 100 ML ONE (03:30)
[2022-06-10] MEDS: MEROPENEM 1 GM VIAL IVP SCH ×3 (04:01→20:21)
[2022-06-10 04:09] LABS: BASOPHILS % (AUTO) 0.7 % (0.0-5.0); EOSINOPHILS % (AUTO) 2.6 % (0.0-8.0); HEMATOCRIT 30.8 % (36-48); LYMPHOCYTES % (AUTO) 25.7 % (21.0-51.0); MEAN CORPUSCULAR HEMOGLOBIN 28.7 pg (27.0-33.0); MEAN CORPUSCULAR HGB CONC 32.5 g/dL (32.0-36.0); MEAN CORPUSCULAR VOLUME 88.5 fL (79-99); MONOCYTES % (AUTO) 7.2 % (3.0-13.0); NEUTROPHILS % (AUTO) 63.1 % (40.0-77.0); PLATELET COUNT (AUTO) 290 K/uL (130-400); RED BLOOD CELL COUNT(AUTO) 3.48 MIL/uL (4.00-5.50); RED CELL DISTRIBUTION WIDTH 15.4 % (11.0-15.5); WHITE BLOOD COUNT (AUTO) 7.6 K/uL (4.8-10.8)
[2022-06-10 04:22] LABS: CREATININE 1.5 mg/dL (0.5-1.5); MAGNESIUM 2.1 mg/dL (1.80-2.40); PHOSPHORUS 2.6 mg/dL (2.5-4.9); POTASSIUM 4.3 mmol/L (3.5-5.1)
[2022-06-10] MEDS: INSULIN HUMULIN R 100 UNIT/ML 3ML SQ SCH ×4 (05:34→20:21)
[2022-06-10] MEDS: CLOPIDOGREL 75MG TAB PO SCH (09:02)
[2022-06-10] MEDS: GABAPENTIN 100 MG CAPSULE PO SCH ×3 (09:02→20:21)
[2022-06-10] MEDS: BISACODYL 5 MG TABLET.DR PO SCH (09:02)
[2022-06-10] MEDS: LIDOCAINE 5% TOPICAL PATCH TP SCH (09:05)
[2022-06-10] MEDS: ATORVASTATIN 10 MG TABLET PO SCH (20:21)
[2022-06-10] MEDS: FAMOTIDINE 20MG VIAL IV SCH (20:21)
[2022-06-11 04:11] VITALS: BP 103/68
[2022-06-11 04:17] LABS: BASOPHILS % (AUTO) 0.6 % (0.0-5.0); EOSINOPHILS % (AUTO) 3.2 % (0.0-8.0); HEMATOCRIT 32.5 % (36-48); LYMPHOCYTES % (AUTO) 22.1 % (21.0-51.0); MEAN CORPUSCULAR HEMOGLOBIN 28.8 pg (27.0-33.0); MONOCYTES % (AUTO) 7.5 % (3.0-13.0); NEUTROPHILS % (AUTO) 65.9 % (40.0-77.0); PLATELET COUNT (AUTO) 290 K/uL (130-400); RED BLOOD CELL COUNT(AUTO) 3.61 MIL/uL (4.00-5.50); RED CELL DISTRIBUTION WIDTH 15.4 % (11.0-15.5); WHITE BLOOD COUNT (AUTO) 8.7 K/uL (4.8-10.8)
[2022-06-11 04:37] LABS: CREATININE 1.4 mg/dL (0.5-1.5); POTASSIUM 3.9 mmol/L (3.5-5.1)
[2022-06-11] MEDS ORDERED: 0.9%NACL 100ML 100 ML ONE (05:09)
[2022-06-11] MEDS: MEROPENEM 1 GM VIAL IVP SCH ×3 (05:17→20:30)
[2022-06-11] MEDS: INSULIN HUMULIN R 100 UNIT/ML 3ML SQ SCH ×4 (06:43→20:30)
[2022-06-11 07:49] VITALS: BP 127/70
[2022-06-11] MEDS: GABAPENTIN 100 MG CAPSULE PO SCH ×3 (08:43→20:30)
[2022-06-11] MEDS: BISACODYL 5 MG TABLET.DR PO SCH (08:43)
[2022-06-11] MEDS: CLOPIDOGREL 75MG TAB PO SCH (08:43)
[2022-06-11] MEDS: LIDOCAINE 5% TOPICAL PATCH TP SCH (08:44)
[2022-06-11] MEDS: ASPIRIN 81MG CHEW TAB PO SCH (10:21)
[2022-06-11] MEDS: METOPROLOL SUCCINATE 25 MG TAB.SR.24H PO SCH (10:21)
[2022-06-11 11:15] VITALS: BP 92/55
[2022-06-11 15:24] VITALS: BP 113/50
[2022-06-11] MEDS: FAMOTIDINE 20MG VIAL IV SCH (20:29)
[2022-06-11] MEDS: ATORVASTATIN 40 MG TABLET PO SCH (20:30)
[2022-06-11 20:54] VITALS: BP 108/48
[2022-06-12] VITALS (7 sets, daily range): BP systolic 93–113; BP diastolic 44–58
[2022-06-12 04:11] LABS: BASOPHILS % (AUTO) 0.6 % (0.0-5.0); EOSINOPHILS % (AUTO) 3.5 % (0.0-8.0); HEMATOCRIT 29.9 % (36-48); LYMPHOCYTES % (AUTO) 20.5 % (21.0-51.0); MEAN CORPUSCULAR HEMOGLOBIN 28.4 pg (27.0-33.0); MEAN CORPUSCULAR HGB CONC 32.4 g/dL (32.0-36.0); MEAN CORPUSCULAR VOLUME 87.7 fL (79-99); NEUTROPHILS % (AUTO) 67.6 % (40.0-77.0); PLATELET COUNT (AUTO) 294 K/uL (130-400); RED BLOOD CELL COUNT(AUTO) 3.41 MIL/uL (4.00-5.50); RED CELL DISTRIBUTION WIDTH 15.7 % (11.0-15.5); WHITE BLOOD COUNT (AUTO) 8.5 K/uL (4.8-10.8)
[2022-06-12 04:21] LABS: CREATININE 1.5 mg/dL (0.5-1.5); POTASSIUM 3.7 mmol/L (3.5-5.1)
[2022-06-12] MEDS: MEROPENEM 1 GM VIAL IVP SCH ×3 (05:45→21:30)
[2022-06-12] MEDS: KCL 20 MEQ ERTAB PO PRN (05:46)
[2022-06-12] MEDS: INSULIN HUMULIN R 100 UNIT/ML 3ML SQ SCH ×4 (06:48→21:00)
[2022-06-12] MEDS: METOPROLOL SUCCINATE 25 MG TAB.SR.24H PO SCH (08:39)
[2022-06-12] MEDS: BISACODYL 5 MG TABLET.DR PO SCH (08:39)
[2022-06-12] MEDS: ASPIRIN 81MG CHEW TAB PO SCH (08:39)
[2022-06-12] MEDS: GABAPENTIN 100 MG CAPSULE PO SCH ×3 (08:39→21:31)
[2022-06-12] MEDS: CLOPIDOGREL 75MG TAB PO SCH (08:39)
[2022-06-12] MEDS: LIDOCAINE 5% TOPICAL PATCH TP SCH (08:39)
[2022-06-12] MEDS ORDERED: 0.9%NACL 100ML 100 ML ONE (20:20)
[2022-06-12] MEDS: ATORVASTATIN 40 MG TABLET PO SCH (21:30)
[2022-06-12] MEDS: FAMOTIDINE 20MG VIAL IV SCH (21:30)
[2022-06-13 03:00] VITALS: BP 116/61
[2022-06-13] MEDS ORDERED: 0.9%NACL 100ML 100 ML ONE (04:22)
[2022-06-13] MEDS: MEROPENEM 1 GM VIAL IVP SCH ×3 (05:02→20:29)
[2022-06-13] MEDS: INSULIN HUMULIN R 100 UNIT/ML 3ML SQ SCH ×4 (06:37→20:14)
[2022-06-13] MEDS: BISACODYL 5 MG TABLET.DR PO SCH (07:34)
[2022-06-13] MEDS: METOPROLOL SUCCINATE 25 MG TAB.SR.24H PO SCH (07:34)
[2022-06-13] MEDS: ASPIRIN 81MG CHEW TAB PO SCH (07:34)
[2022-06-13] MEDS: GABAPENTIN 100 MG CAPSULE PO SCH ×3 (07:35→20:30)
[2022-06-13] MEDS: CLOPIDOGREL 75MG TAB PO SCH (07:35)
[2022-06-13] MEDS: LIDOCAINE 5% TOPICAL PATCH TP SCH (07:36)
[2022-06-13 07:51] VITALS: BP 110/56
[2022-06-13 11:34] VITALS: BP 105/55
[2022-06-13 16:00] VITALS: BP 98/56
[2022-06-13] MEDS: ATORVASTATIN 40 MG TABLET PO SCH (20:30)
[2022-06-13] MEDS: FAMOTIDINE 20MG VIAL IV SCH (20:30)
[2022-06-13 20:51] VITALS: BP 108/58
[2022-06-14] VITALS (7 sets, daily range): BP systolic 95–122; BP diastolic 54–69
[2022-06-14] MEDS: MEROPENEM 1 GM VIAL IVP SCH ×3 (05:27→20:05)
[2022-06-14] MEDS: INSULIN HUMULIN R 100 UNIT/ML 3ML SQ SCH ×4 (07:30→20:05)
[2022-06-14 09:48] LABS: HEMATOCRIT 32.1 % (36-48); MEAN CORPUSCULAR HEMOGLOBIN 28.7 pg (27.0-33.0); MEAN CORPUSCULAR HGB CONC 32.7 g/dL (32.0-36.0); MEAN CORPUSCULAR VOLUME 87.7 fL (79-99); RED BLOOD CELL COUNT(AUTO) 3.66 MIL/uL (4.00-5.50); WHITE BLOOD COUNT (AUTO) 9.4 K/uL (4.8-10.8)
[2022-06-14 09:56] LABS: CREATININE 1.6 mg/dL (0.5-1.5); POTASSIUM 3.4 mmol/L (3.5-5.1)
[2022-06-14] MEDS: METOPROLOL SUCCINATE 25 MG TAB.SR.24H PO SCH (10:14)
[2022-06-14] MEDS: ASPIRIN 81MG CHEW TAB PO SCH (10:14)
[2022-06-14] MEDS: GABAPENTIN 100 MG CAPSULE PO SCH ×3 (10:14→20:05)
[2022-06-14] MEDS: LIDOCAINE 5% TOPICAL PATCH TP SCH (10:15)
[2022-06-14] MEDS: BISACODYL 5 MG TABLET.DR PO SCH (10:15)
[2022-06-14] MEDS: CLOPIDOGREL 75MG TAB PO SCH (10:15)
[2022-06-14] MEDS: ACETAMINOPHEN 500 MG TABLET PO PRN ×2 (13:39→20:44)
[2022-06-14] MEDS: FAMOTIDINE 20MG VIAL IV SCH (20:05)
[2022-06-14] MEDS: ATORVASTATIN 40 MG TABLET PO SCH (20:05)
[2022-06-15 05:02] VITALS: BP 122/66
[2022-06-15] MEDS: MEROPENEM 1 GM VIAL IVP SCH ×3 (05:17→21:35)
[2022-06-15] MEDS: INSULIN HUMULIN R 100 UNIT/ML 3ML SQ SCH ×4 (06:31→21:00)
[2022-06-15 07:30] VITALS: BP 116/61
[2022-06-15] MEDS: LIDOCAINE 5% TOPICAL PATCH TP SCH (08:09)
[2022-06-15] MEDS: CLOPIDOGREL 75MG TAB PO SCH (08:10)
[2022-06-15] MEDS: ASPIRIN 81MG CHEW TAB PO SCH (08:10)
[2022-06-15] MEDS: METOPROLOL SUCCINATE 25 MG TAB.SR.24H PO SCH (08:10)
[2022-06-15] MEDS: BISACODYL 5 MG TABLET.DR PO SCH (08:11)
[2022-06-15] MEDS: GABAPENTIN 100 MG CAPSULE PO SCH ×3 (08:12→21:34)
[2022-06-15] MEDS ORDERED: 0.9%NACL 1000ML 1,000 ML IV SCH (09:30)
[2022-06-15] MEDS ORDERED: POTASSIUM CHLORIDE 10% ELIXIR 20 MEQ/15 ML UDCUP PO SCH (09:30)
[2022-06-15 10:10] LABS: RETICULOCYTE % (AUTO) 2.56 % (0.42-2.23)
[2022-06-15 11:10] VITALS: BP 94/50
[2022-06-15] MEDS ORDERED: 0.9%NACL 100ML 100 ML ONE (11:57)
[2022-06-15 16:15] VITALS: BP 87/51
[2022-06-15 20:00] VITALS: BP 115/55
[2022-06-15] MEDS: ATORVASTATIN 40 MG TABLET PO SCH (21:34)
[2022-06-15] MEDS: FAMOTIDINE 20MG VIAL IV SCH (21:35)
[2022-06-16] VITALS: BP 122/60
[2022-06-16 04:00] VITALS: BP 123/66
[2022-06-16 05:29] LABS: BASOPHILS % (AUTO) 0.8 % (0.0-5.0); EOSINOPHILS % (AUTO) 2.7 % (0.0-8.0); HEMATOCRIT 30.7 % (36-48); LYMPHOCYTES % (AUTO) 19.5 % (21.0-51.0); MEAN CORPUSCULAR HEMOGLOBIN 28.8 pg (27.0-33.0); MEAN CORPUSCULAR HGB CONC 31.9 g/dL (32.0-36.0); MEAN CORPUSCULAR VOLUME 90.3 fL (79-99); MONOCYTES % (AUTO) 7.5 % (3.0-13.0); NEUTROPHILS % (AUTO) 68.9 % (40.0-77.0); PLATELET COUNT (AUTO) 282 K/uL (130-400); RED CELL DISTRIBUTION WIDTH 16.2 % (11.0-15.5)
[2022-06-16] MEDS: MEROPENEM 1 GM VIAL IVP SCH (05:34)
[2022-06-16 05:48] LABS: CREATININE 1.4 mg/dL (0.5-1.5); POTASSIUM 3.9 mmol/L (3.5-5.1)
[2022-06-16 06:25] LABS: % IRON SATURATION 14.8 % (22-44)
[2022-06-16] MEDS ORDERED: COMPOUND IV REFRIGERATED 1 EACH IVSOLN MISC PRN (07:00)
[2022-06-16] MEDS ORDERED: IRON SUCROSE COMPLEX 500 MG in 0.9%NACL 50ML 50 ML IV SCH (07:00)
[2022-06-16] MEDS ORDERED: EPOETIN ALFA-EPBX (NON-ESRD) 10,000 UNIT/ML VIAL SQ SCH (07:00)
[2022-06-16] MEDS ORDERED: CLOP-31 PO (07:12)
[2022-06-16] MEDS ORDERED: GABA100C PO (07:12)
[2022-06-16] MEDS ORDERED: ATOR40TA69 PO (07:12)
[2022-06-16] MEDS ORDERED: ASPI-1005 PO (07:12)
[2022-06-16] MEDS ORDERED: METO25TA3 PO (07:12)
[2022-06-16] MEDS: INSULIN HUMULIN R 100 UNIT/ML 3ML SQ SCH (07:19)
[2022-06-16] MEDS: CLOPIDOGREL 75MG TAB PO SCH (07:45)
[2022-06-16] MEDS: LIDOCAINE 5% TOPICAL PATCH TP SCH (07:45)
[2022-06-16] MEDS: ASPIRIN 81MG CHEW TAB PO SCH (07:46)
[2022-06-16] MEDS: METOPROLOL SUCCINATE 25 MG TAB.SR.24H PO SCH (07:46)
[2022-06-16] MEDS: BISACODYL 5 MG TABLET.DR PO SCH (07:46)
[2022-06-16] MEDS: GABAPENTIN 100 MG CAPSULE PO SCH (07:47)
[2022-06-16 08:00] VITALS: BP 101/52
[2022-06-16] MEDS ORDERED: FOLIC ACID 5 MG/ML VIAL IVP SCH (09:00)
== END 2022-06-16 11:08 | disposition home or self-care (01) | DRG 853 ==
LOC: EDH 13:40 → EDHIP 18:43 → 2AH 06-01 00:32 → 2CH 06-09 13:30 → 2DH 06-10 14:14
PROVIDERS: ADMIT Internal Medicine; ATTEND Internal Medicine
PROC: 0W9H30Z Drainage of Retroperitoneum with Drainage Device, Percutaneous Approach (ICD-10-PCS; 2022-06-01)
PROC: 0T25X0Z Change Drainage Device in Kidney, External Approach (ICD-10-PCS; 2022-06-03)
PROC: 0W9H30Z Drainage of Retroperitoneum with Drainage Device, Percutaneous Approach (ICD-10-PCS; principal; 2022-06-04)
PROC: 0T25X0Z Change Drainage Device in Kidney, External Approach (ICD-10-PCS; 2022-06-09)
PROC: 027034Z Dilation of Coronary Artery, One Artery with Drug-eluting Intraluminal Device, Percutaneous Approach (ICD-10-PCS; 2022-06-09)
PROC: B2111ZZ Fluoroscopy of Multiple Coronary Arteries using Low Osmolar Contrast (ICD-10-PCS; 2022-06-09)
PROC: 4A023N7 Measurement of Cardiac Sampling and Pressure, Left Heart, Percutaneous Approach (ICD-10-PCS; 2022-06-09)
PROC: 3E073PZ Introduction of Platelet Inhibitor into Coronary Artery, Percutaneous Approach (ICD-10-PCS; 2022-06-09)
DX: A41.50 Gram-negative sepsis, unspecified (principal); I21.19 ST elevation (STEMI) myocardial infarction involving other coronary artery of inferior wall; K68.19 Other retroperitoneal abscess; E87.1 Hypo-osmolality and hyponatremia; N13.6 Pyonephrosis; Z16.24 Resistance to multiple antibiotics; Z16.12 Extended spectrum beta lactamase (ESBL) resistance; B96.4 Proteus (mirabilis) (morganii) as the cause of diseases classified elsewhere; D64.9 Anemia, unspecified; E11.9 Type 2 diabetes mellitus without complications; E78.00 Pure hypercholesterolemia, unspecified; I10 Essential (primary) hypertension; I25.10 Atherosclerotic heart disease of native coronary artery without angina pectoris; I25.2 Old myocardial infarction; Z93.6 Other artificial openings of urinary tract status; Z79.84 Long term (current) use of oral hypoglycemic drugs; Z83.3 Family history of diabetes mellitus; Z87.440 Personal history of urinary (tract) infections; Z87.442 Personal history of urinary calculi; Z88.6 Allergy status to analgesic agent; Z95.5 Presence of coronary angioplasty implant and graft; Z98.41 Cataract extraction status, right eye; Z98.42 Cataract extraction status, left eye
CPT/HCPCS: 36415; 49423; 49424; 50431; 50435; 74170; 74176; 74177; 75984; 75989; 76080; 78700; 80048; 80053; 81001; 82570; 82607; 82728; 82746; 82948; 82977; 83036; 83540; 83550; 83605; 83735; 83930; 83935; 84100; 84145; 84300; 84484; 85025; 85027; 85045; 85378; 85610; 85651; 85730; 86140; 87040; 87071; 87077; 87088; 87186; 87205; 93005; 93306; 93356; 93458; 97039; 99156; 99157; A9562; C1729; C1769; C1887; C1894; C9606; G0378; J0461; J1170; J1265; J1327; J1644; J1756; J2185; J2250; J2405; J2543; J3010; J3370; J3475; J3490; J7030; J7060; Q9967

== ENCOUNTER → 2022-07-26 | Outpatient (CLI) | payer OTHER ==
[~2022-07-26] MED LIST changes: +ASPI-1005 PO; +ATOR40TA69 PO; +CLOP-31 PO; +GABA100C PO; +METO25TA3 PO; +ONDA4TAB10 PO; -PRAV10TA39 PO
== END | disposition home or self-care (01) ==
LOC: RAH 14:37
PROVIDERS: ATTEND Urology
DX: N20.0 Calculus of kidney (principal); N13.30 Unspecified hydronephrosis; N28.89 Other specified disorders of kidney and ureter; N32.89 Other specified disorders of bladder; K57.90 Diverticulosis of intestine, part unspecified, without perforation or abscess without bleeding; J84.10 Pulmonary fibrosis, unspecified; I25.10 Atherosclerotic heart disease of native coronary artery without angina pectoris; M47.815 Spondylosis without myelopathy or radiculopathy, thoracolumbar region; Z93.6 Other artificial openings of urinary tract status; Z96.641 Presence of right artificial hip joint
CPT/HCPCS: 74176

== ENCOUNTER 2023-01-19 09:33 | Inpatient (IN) | payer OTHER ==
[~2023-01-19] VITALS: Ht 160 cm; Wt 61.9 kg
[2023-01-19 10:04] LABS: APPEARANCE,URINE TURBID (CLEAR); BILIRUBIN,URINE NEGATIVE (NEGATIVE); GLUCOSE, URINE (UA) NEGATIVE (NEGATIVE); KETONES,URINE NEGATIVE (NEGATIVE); LEUKOCYTE ESTERASE ,URINE 500 Leu/uL (NEGATIVE); NITRATE,URINE NEGATIVE (NEGATIVE); OCCULT BLOOD,URINE MODERATE (NEGATIVE); PH,URINE 5.5 (5.0-8.0); PROTEIN,URINE 50 mg/dL (NEGATIVE); UROBILINOGEN,URINE 0.2 mg/dL (0.2-1.0)
[2023-01-19 10:07] LABS: ADD UA MICROSCOPIC YES; COLOR,URINE YELLOW (YELLOW)
[2023-01-19 10:23] LABS: BACTERIA,URINE MANY /HPF (None Seen); RBC,URINE 51-100 /HPF (0-1); SQUAMOUS EPITHELIAL CELL,UR MOD /HPF (0-2); WBC,URINE TNTC /HPF (0-1)
[2023-01-19 10:43] LABS: BASOPHILS # (AUTO) 0.08 K/uL (0.00-0.20); BASOPHILS % (AUTO) 0.6 % (0.0-5.0); EOSINOPHILS # (AUTO) 0.23 K/uL (0.00-0.70); EOSINOPHILS % (AUTO) 1.8 % (0.0-8.0); HEMATOCRIT 42.8 % (36-48); IMMATURE GRANULOCYTE ABSOLUTE 0.07 K/uL (0-1); LYMPHOCYTES # (AUTO) 1.1 K/uL (1.0-4.8); MEAN CORPUSCULAR HEMOGLOBIN 29.2 pg (27.0-33.0); MEAN CORPUSCULAR HGB CONC 33.2 g/dL (32.0-36.0); MEAN CORPUSCULAR VOLUME 88.1 fL (79-99); MONOCYTES # (AUTO) 0.9 K/uL (0.1-1.0); MONOCYTES % (AUTO) 7.3 % (3.0-13.0); NEUTROPHILS # (AUTO) 10.2 K/uL (1.8-7.7); NEUTROPHILS % (AUTO) 80.7 % (40.0-77.0); PLATELET COUNT (AUTO) 243 K/uL (130-400); RED BLOOD CELL COUNT(AUTO) 4.86 MIL/uL (4.00-5.50); RED CELL DISTRIBUTION WIDTH 15.3 % (11.0-15.5); WHITE BLOOD COUNT (AUTO) 12.7 K/uL (4.8-10.8)
[2023-01-19 11:05] LABS: WBC MORPHOLOGY CONSISTENT W/DIFF
[2023-01-19 11:13] LABS: CREATININE 1.4 mg/dL (0.5-1.5)
[2023-01-19 11:17] LABS: ALBUMIN 2.8 g/dL (3.5-5.0); BILIRUBIN,TOTAL 0.8 mg/dL (0.2-1.0); TOTAL PROTEIN, SERUM 9.1 g/dL (6.0-8.3)
[2023-01-19] MEDS ORDERED: CEFTRIAXONE 1G VIAL IVPB ONE (11:30)
[2023-01-19] MEDS ORDERED: 0.9%NACL 1000ML 1,000 ML IV ONE (11:30)
[2023-01-19] MEDS ORDERED: KETOROLAC 15MG/ML VIAL (15MG/ML) IV ONE (11:30)
[2023-01-19] MEDS ORDERED: ONDANSETRON 4MG INJ IVP PRN (13:30)
[2023-01-19] MEDS ORDERED: HYDRALAZINE 20MG/ML VIAL IV PRN (13:30)
[2023-01-19] MEDS: 0.9%NACL 1000ML 1,000 ML IV SCH ×2 (13:30→22:45)
[2023-01-19] MEDS ORDERED: LABETALOL 20MG SYG IV PRN (13:30)
[2023-01-19] MEDS ORDERED: DOCUSATE SODIUM 100 MG CAP PO PRN (13:30)
[2023-01-19] MEDS ORDERED: ACETAMINOPHEN 325 MG TAB PO PRN (13:30)
[2023-01-19] MEDS: CEFTRIAXONE 2GM VIAL IVPB SCH (13:30)
[2023-01-19] MEDS: KETOROLAC 15MG/ML VIAL (15MG/ML) IV PRN (23:46)
[2023-01-20] VITALS (9 sets, daily range): BP systolic 128–170; BP diastolic 68–90; PULSE 74–98; RESP 16–18; O2SAT 97–99
[2023-01-20] MEDS ORDERED: ATOR40TA71 PO (01:55)
[2023-01-20] MEDS ORDERED: PRED-409 PO (01:55)
[2023-01-20] MEDS ORDERED: ASPI-1197 PO (01:55)
[2023-01-20] MEDS ORDERED: METO-408 PO (01:55)
[2023-01-20] MEDS ORDERED: LEFL10TA19 PO (01:55)
[2023-01-20] MEDS ORDERED: LEVO50TA11 PO (01:55)
[2023-01-20] MEDS ORDERED: LINA5TAB PO (01:55)
[2023-01-20] MEDS ORDERED: CLOP75TA32 PO (01:55)
[2023-01-20 05:28] LABS: BASOPHILS # (AUTO) 0.06 K/uL (0.00-0.20); BASOPHILS % (AUTO) 0.6 % (0.0-5.0); EOSINOPHILS # (AUTO) 0.13 K/uL (0.00-0.70); EOSINOPHILS % (AUTO) 1.2 % (0.0-8.0); HEMATOCRIT 38.3 % (36-48); IMMATURE GRANULOCYTE ABSOLUTE 0.05 K/uL (0-1); LYMPHOCYTES # (AUTO) 1.1 K/uL (1.0-4.8); LYMPHOCYTES % (AUTO) 10.6 % (21.0-51.0); MEAN CORPUSCULAR HEMOGLOBIN 29.4 pg (27.0-33.0); MEAN CORPUSCULAR HGB CONC 31.9 g/dL (32.0-36.0); MEAN CORPUSCULAR VOLUME 92.3 fL (79-99); MONOCYTES # (AUTO) 1.1 K/uL (0.1-1.0); MONOCYTES % (AUTO) 9.7 % (3.0-13.0); NEUTROPHILS # (AUTO) 8.4 K/uL (1.8-7.7); NEUTROPHILS % (AUTO) 77.4 % (40.0-77.0); PLATELET COUNT (AUTO) 186 K/uL (130-400); RED BLOOD CELL COUNT(AUTO) 4.15 MIL/uL (4.00-5.50); RED CELL DISTRIBUTION WIDTH 15.4 % (11.0-15.5); WHITE BLOOD COUNT (AUTO) 10.8 K/uL (4.8-10.8)
[2023-01-20] MEDS: KETOROLAC 15MG/ML VIAL (15MG/ML) IV PRN ×2 (05:30→20:23)
[2023-01-20] MEDS: 0.9%NACL 1000ML 1,000 ML IV SCH ×3 (05:30→21:36)
[2023-01-20 05:46] LABS: CREATININE 1.3 mg/dL (0.5-1.5); MAGNESIUM 1.8 mg/dL (1.80-2.40); PHOSPHORUS 3.1 mg/dL (2.5-4.9); POTASSIUM 3.9 mmol/L (3.5-5.1); THYROID STIMULATING HORMONE 9.27 uIU/mL (0.36-3.74)
[2023-01-20 06:15] LABS: B-TYPE NATRIURETIC PEPTIDE 165 pg/mL (0-100)
[2023-01-20] MEDS: ENOXAPARIN SODIUM 40 MG/0.4 ML SYRINGE SQ SCH (09:39)
[2023-01-20] MEDS: PANTOPRAZOLE 40 MG TAB DR PO SCH (09:39)
[2023-01-20] MEDS: TAMSULOSIN HCL 0.4 MG CAP.ER.24H PO SCH (12:26)
[2023-01-20] MEDS: CEFTRIAXONE 2GM VIAL IVPB SCH (12:32)
[2023-01-21] VITALS (25 sets, daily range): BP systolic 104–169; BP diastolic 62–82; PULSE 65–94; RESP 12–19; O2SAT 99
[2023-01-21] MEDS: KETOROLAC 15MG/ML VIAL (15MG/ML) IV PRN ×3 (03:41→18:10)
[2023-01-21] MEDS: 0.9%NACL 1000ML 1,000 ML IV SCH ×3 (04:45→22:05)
[2023-01-21] MEDS ORDERED: LEVOTHYROXINE 50 MCG TABLET ONE (07:26)
[2023-01-21] MEDS: LEVOTHYROXINE 50 MCG TABLET PO SCH (07:27)
[2023-01-21 08:15] LABS: MEAN CORPUSCULAR HEMOGLOBIN 29.6 pg (27.0-33.0); MEAN CORPUSCULAR HGB CONC 32.4 g/dL (32.0-36.0); MEAN CORPUSCULAR VOLUME 91.4 fL (79-99); RED BLOOD CELL COUNT(AUTO) 4.05 MIL/uL (4.00-5.50); RED CELL DISTRIBUTION WIDTH 14.8 % (11.0-15.5); WHITE BLOOD COUNT (AUTO) 9.8 K/uL (4.8-10.8)
[2023-01-21 08:26] LABS: CREATININE 1.1 mg/dL (0.5-1.5); POTASSIUM 3.8 mmol/L (3.5-5.1)
[2023-01-21] MEDS ORDERED: LEFLUNOMIDE PO SCH (09:00)
[2023-01-21] MEDS: TAMSULOSIN HCL 0.4 MG CAP.ER.24H PO SCH (09:51)
[2023-01-21] MEDS: ATORVASTATIN 40 MG TABLET PO SCH (09:51)
[2023-01-21] MEDS: PREDNISONE 5 MG TABLET PO SCH (09:52)
[2023-01-21] MEDS: ENOXAPARIN SODIUM 40 MG/0.4 ML SYRINGE SQ SCH (09:52)
[2023-01-21] MEDS: METOPROLOL SUCCINATE 25 MG TAB.SR.24H PO SCH (09:52)
[2023-01-21] MEDS: PANTOPRAZOLE 40 MG TAB DR PO SCH (09:52)
[2023-01-21 11:23] LABS: SARS-CoV-2, RNA, NAAT NEGATIVE SARS CoV-2 (NEGATIVE)
[2023-01-21] MEDS: CEFTRIAXONE 2GM VIAL IVPB SCH (13:30)
[2023-01-21] MEDS ORDERED: IOHEXOL-350 50ML VIAL IV ONE (18:37)
[2023-01-21] MEDS ORDERED: PROPOFOL 10 MG/ML 20ML VIAL IV ONE (18:45)
[2023-01-21] MEDS ORDERED: NOREPINEPHRINE BITARTRATE 1 MG/1 ML ML IV ONE (18:45)
[2023-01-21] MEDS ORDERED: KETAMINE 50MG/ML SYRINGE 50 MG/ML DISP.SYRIN ONE (18:45)
[2023-01-21] MEDS ORDERED: LIDOCAINE PF 100MG/5ML (2%) SYRINGE 5ML ONE (18:45)
[2023-01-21] MEDS ORDERED: SUCCINYLCHOLINE CHLORIDE 20 MG/ML 10 ML VIAL ONE (18:45)
[2023-01-21] MEDS ORDERED: PHENYLEPHRINE HCL 10 MG/ML 1ML VIAL IV ONE ×2 (18:48→19:42)
[2023-01-21] MEDS ORDERED: ROCURONIUM 10MG/1ML SYR 10 MG/ML ML ONE (18:49)
[2023-01-21] MEDS ORDERED: GENTAMICIN SULFATE 80 MG/2 ML VIAL ONE (19:40)
[2023-01-21] MEDS ORDERED: NEOSTIGMINE 5MG/5ML SYR IV ONE (20:03)
[2023-01-21] MEDS ORDERED: GLYCOPYRROLATE 1 MG/5 ML SYRINGE ONE (20:03)
[2023-01-21] MEDS ORDERED: ONDANSETRON 4MG INJ ONE (20:05)
[2023-01-22] VITALS (9 sets, daily range): BP systolic 128–168; BP diastolic 59–88; PULSE 65–100; RESP 17–19; O2SAT 98
[2023-01-22] MEDS: 0.9%NACL 1000ML 1,000 ML IV SCH ×3 (05:31→20:26)
[2023-01-22] MEDS: TAMSULOSIN HCL 0.4 MG CAP.ER.24H PO SCH (08:06)
[2023-01-22] MEDS: METOPROLOL SUCCINATE 25 MG TAB.SR.24H PO SCH (08:06)
[2023-01-22] MEDS: PANTOPRAZOLE 40 MG TAB DR PO SCH (08:06)
[2023-01-22] MEDS: PHENAZOPYRIDINE HCL 200 MG TABLET PO SCH ×2 (08:06→20:26)
[2023-01-22] MEDS: ATORVASTATIN 40 MG TABLET PO SCH (08:06)
[2023-01-22] MEDS: LEVOTHYROXINE 50 MCG TABLET PO SCH (08:06)
[2023-01-22] MEDS: PREDNISONE 5 MG TABLET PO SCH (08:06)
[2023-01-22] MEDS: ENOXAPARIN SODIUM 40 MG/0.4 ML SYRINGE SQ SCH (08:07)
[2023-01-22 10:17] LABS: HEMATOCRIT 36.4 % (36-48); MEAN CORPUSCULAR HEMOGLOBIN 29.6 pg (27.0-33.0); MEAN CORPUSCULAR HGB CONC 32.4 g/dL (32.0-36.0); MEAN CORPUSCULAR VOLUME 91.2 fL (79-99); RED BLOOD CELL COUNT(AUTO) 3.99 MIL/uL (4.00-5.50); RED CELL DISTRIBUTION WIDTH 15.1 % (11.0-15.5); WHITE BLOOD COUNT (AUTO) 10.5 K/uL (4.8-10.8)
[2023-01-22 10:44] LABS: CREATININE 1.1 mg/dL (0.5-1.5); POTASSIUM 4.1 mmol/L (3.5-5.1)
[2023-01-22] MEDS: KETOROLAC 15MG/ML VIAL (15MG/ML) IV PRN (12:08)
[2023-01-22] MEDS: CEFTRIAXONE 2GM VIAL IVPB SCH (13:09)
[2023-01-23] MEDS: KETOROLAC 15MG/ML VIAL (15MG/ML) IV PRN (02:20)
[2023-01-23 03:00] VITALS: BP 157/71; PULSE 85; RESP 20
[2023-01-24 08:19] LABS: HEMATOCRIT 33.8 % (36-48); RED BLOOD CELL COUNT(AUTO) 3.69 MIL/uL (4.00-5.50); WHITE BLOOD COUNT (AUTO) 8.1 K/uL (4.8-10.8)
[2023-01-24 08:20] LABS: MEAN CORPUSCULAR HEMOGLOBIN 29.8 pg (27.0-33.0); MEAN CORPUSCULAR HGB CONC 32.5 g/dL (32.0-36.0); MEAN CORPUSCULAR VOLUME 91.6 fL (79-99); PLATELET COUNT (AUTO) 170 K/uL (130-400); RED CELL DISTRIBUTION WIDTH 14.8 % (11.0-15.5)
[2023-01-24 08:22] LABS: BASOPHILS # (AUTO) 0.04 K/uL (0.00-0.20); BASOPHILS % (AUTO) 0.5 % (0.0-5.0); EOSINOPHILS # (AUTO) 0.15 K/uL (0.00-0.70); EOSINOPHILS % (AUTO) 1.9 % (0.0-8.0); IMMATURE GRANULOCYTE ABSOLUTE 0.04 K/uL (0-1); LYMPHOCYTES # (AUTO) 0.7 K/uL (1.0-4.8); LYMPHOCYTES % (AUTO) 8.1 % (21.0-51.0); MONOCYTES # (AUTO) 0.9 K/uL (0.1-1.0); MONOCYTES % (AUTO) 11.3 % (3.0-13.0); NEUTROPHILS # (AUTO) 6.3 K/uL (1.8-7.7); NEUTROPHILS % (AUTO) 77.7 % (40.0-77.0)
[2023-01-24 08:23] LABS: POTASSIUM 3.7 mmol/L (3.5-5.1)
== END 2023-01-23 15:50 | disposition home or self-care (01) | DRG 854 ==
LOC: EDH 09:33 → EDHIP 13:05 → OBSVTOIN 13:05 → 3BH 01-20 01:23
PROVIDERS: ADMIT Internal Medicine Critical Care Medicine; ATTEND Internal Medicine Critical Care Medicine
PROC: BT1D1ZZ Fluoroscopy of Right Kidney, Ureter and Bladder using Low Osmolar Contrast (ICD-10-PCS; 2023-01-21)
PROC: 0T768DZ Dilation of Right Ureter with Intraluminal Device, Via Natural or Artificial Opening Endoscopic (ICD-10-PCS; principal; 2023-01-21 18:47)
DX: A41.9 Sepsis, unspecified organism (principal); N13.6 Pyonephrosis; E11.9 Type 2 diabetes mellitus without complications; M19.90 Unspecified osteoarthritis, unspecified site; N20.0 Calculus of kidney; E78.00 Pure hypercholesterolemia, unspecified; Z20.822 Contact with and (suspected) exposure to COVID-19; Z86.73 Personal history of transient ischemic attack (TIA), and cerebral infarction without residual deficits
CPT/HCPCS: 36415; 74176; 74420; 80048; 80053; 81001; 82948; 83605; 83615; 83690; 83735; 83880; 84100; 84443; 84484; 85025; 85027; 87088; 87635; A4354; C1758; G0378; J0330; J0696; J1580; J1650; J1885; J2001; J2371; J2405; J2704; J2710; J3490; J7030; J7512; Q9967; A4358; A4930; C1769; C2617